=== PATIENT | female | born 1945 | race Hispanic/Latino ===

== ENCOUNTER 2017-11-28 20:54 | Emergency (ER) | payer MEDICARE, OTHER ==
[2017-11-28] MEDS ORDERED: TRIPLE ANTIBIOTIC TP STA (21:35)
[2017-11-28] MEDS ORDERED: TYLENOL PO ONE (21:35)
[2017-11-28] MEDS ORDERED: BOOSTRIX IM ONE (21:35)
--- NOTE | 2017-11-28 21:36 | Emergency Department Report ---
ED Fall HPI - General Chief Complaint: Fall Stated Complaint: KNEE PAIN Time Seen by Provider: 11/28/17 21:19 Source: patient, RN notes reviewed Mode of arrival: Stretcher Limitations: Physical Limitation - History of Present Illness Initial Comments: Primary care Dr.: Josefina andrade Orthopedics: Prince Dawson is a 72-year-old female, unknown to this provider, takes aspirin, presents to the ER after mechanical trip and fall, landing on her left knee, and left side of her face. There were no symptoms prior to the fall, she tripped while walking her dog. Her left knee pain is sharp and achy, increases with palpation , decreases with rest, does not radiate anywhere. She can't recall her last tetanus vaccination, and has left-sided forehead pain , and left cheek pain where she fell. There is no midline neck pain, there is no weakness, numbness, ataxia, chest pain, shortness of breath, abdominal pain, and there is no bladder or bowel retention or incontinence. MD Complaint: fall -: Sudden Fall From: standing When Fall Occurred: 1 hour [employer] PREPAR[employer] Fall Witnessed: no Place Fall Occurred: home Loss of Consciousness: none Prolonged Down Time?: no Symptoms Prior to Fall: none Location: head, other Location - Extremities: Left: Knee, Leg Severity: moderate Quality: other (see history of present illness) Associated Symptoms: denies: neck pain, numbness, weakness, chest paint, shortness of breath, abdominal pain, hematuria, lightheaded, vertigo, confusion - Related Data Home Medications Medication Instructions Recorded Confirmed Last Taken Aspirin [Aspirin BABY CHEW TAB] 81 mg PO QDAY 05/06/13 02/04/14 01/21/14 81 MG Atorvastatin (Nf) [Lipitor (Nf)] 20 mg PO QDAY 05/06/13 02/04/14 02/03/14 22:00 20 MG Celecoxib [celeBREX] 200 mg PO DAILY 05/06/13 02/04/14 02/03/14 22:00 200 MG Insulin Detemir [Levemir Flexpen] 100 unit SQ HS 05/06/13 02/04/14 02/02/14 23: 30 54 UNITS Valsartan [Diovan] 160 mg PO QDAY 05/06/13 02/04/14 02/04/14 06:00 160 MG Allopurinol [Zyloprim] 300 mg PO QDAY 01/13/14 02/04/14 02/03/14 08:30 300 MG Escitalopram [Lexapro] 10 mg PO DAILY 01/13/14 02/04/14 02/03/14 20:00 10 MG Glipizide/Metformin HCl 1 each PO BID 01/13/14 02/04/14 02/03/14 22:00 [glipiZIDE-Metformin 5-500 mg] 1 TAB Sitagliptin Phosphate [Januvia] 100 mg PO DAILY 01/13/14 02/04/14 02/03/14 09:00 100 mg Levalbuterol HCl [Xopenex] 3 ml INHALATION PRN PRN 02/04/14 02/04/14 02/04/14 06 :00 3 ML Previous Rx's Medication Instructions Recorded Last Taken Type HYDROcodone/ACETAMINOPHEN [[place] 1 each PO 6XD PRN #60 tablet 02/11/14 Unknown Rx 5/325 Tablet] Acetaminophen [Tylenol Arthritis] 650 mg PO Q6HR PRN #30 tablet.er 11/28/17 Unknown Rx Bacitracin Zinc Oint [Antibiotic 20 applic TP BID #1 tube 11/28/17 Unknown Rx Oint] Allergies Allergy/AdvReac Type Severity Reaction Status Date / Time Sulfa (Sulfonamide Allergy Swelling Verified 05/22/13 07:56 Antibiotics) corn [[place]] AdvReac Unknown Verified 01/13/14 12:45 strawberry [[place]] AdvReac Unknown Verified 01/13/14 12:45 ED Review of Systems ROS: Stated complaint: KNEE PAIN Other details as noted in HPI Comment: All other systems reviewed and negative ED Past Medical Hx - Past Medical History Hx Hypertension: Yes (2000/PCP-jose WHITTAKER) Hx Heart Attack/AMI: No Hx Diabetes: Yes (1993) Hx Renal Disease: No Hx Headaches / Migraines: No Hx Seizures: No Hx Asthma: Yes Hx Dementia: No - Surgical History Hx Cholecystectomy: Yes (1993) Hx Appendectomy: Yes (1964) Additional Surgical History: R KNEE - Social History Smoking Status: Never Smoker Substance Use Type: None - Medications Home Medications: Home Medications Medication Instructions Recorded Confirmed Last Taken Type Aspirin [Aspirin BABY CHEW TAB] 81 mg PO QDAY 05/06/13 02/04/14 01/21/14 History 81 MG Atorvastatin (Nf) [Lipitor (Nf)] 20 mg PO QDAY 05/06/13 02/04/14 02/03/14 22:00 History 20 MG Celecoxib [celeBREX] 200 mg PO DAILY 05/06/13 02/04/14 02/03/14 22:00 History 200 MG Insulin Detemir [Levemir Flexpen] 100 unit SQ HS 05/06/13 02/04/14 02/02/14 23: 30 History 54 UNITS Valsartan [Diovan] 160 mg PO QDAY 05/06/13 02/04/14 02/04/14 06:00 History 160 MG Allopurinol [Zyloprim] 300 mg PO QDAY 01/13/14 02/04/14 02/03/14 08:30 History 300 MG Escitalopram [Lexapro] 10 mg PO DAILY 01/13/14 02/04/14 02/03/14 20:00 History 10 MG Glipizide/Metformin HCl 1 each PO BID 01/13/14 02/04/14 02/03/14 22:00 History [glipiZIDE-Metformin 5-500 mg] 1 TAB Sitagliptin Phosphate [Januvia] 100 mg PO DAILY 01/13/14 02/04/14 02/03/14 09: 00 History 100 mg Levalbuterol HCl [Xopenex] 3 ml INHALATION PRN PRN 02/04/14 02/04/14 02/04/14 06 :00 History 3 ML HYDROcodone/ACETAMINOPHEN [[place] 1 each PO 6XD PRN #60 tablet 02/11/14 Unknown Rx 5/325 Tablet] Acetaminophen [Tylenol Arthritis] 650 mg PO Q6HR PRN #30 tablet.er 11/28/17 Unknown Rx Bacitracin Zinc Oint [Antibiotic 20 applic TP BID #1 tube 11/28/17 Unknown Rx Oint] ED Physical Exam - General Limitations: Physical Limitation General appearance: alert, in no apparent distress - Head Head exam: Present: normocephalic, other (superficial forehead abrasions noted) - Eye Eye exam: Present: normal appearance, EOMI, other (visual acuity intact to finger counting, color perception, reading at a close distance). Absent: nystagmus - ENT ENT exam: Present: normal exam, normal orophraynx, mucous membranes moist, TM's normal bilaterally (negative nasal septal hematoma. No hemotympanum.), normal external ear exam, other (no dental laxity) - Neck Neck exam: Present: normal inspection, full ROM. Absent: tenderness, meningismus - Respiratory Respiratory exam: Present: normal lung sounds bilaterally. Absent: respiratory distress - Cardiovascular Cardiovascular Exam: Present: regular rate, normal rhythm, normal heart sounds. Absent: bradycardia, tachycardia, irregular rhythm, systolic murmur, diastolic murmur, rubs, gallop - GI/Abdominal GI/Abdominal exam: Present: soft, normal bowel sounds. Absent: distended, tenderness, guarding, rebound, rigid, pulsatile mass - Extremities Exam Extremities exam: Present: full ROM, tenderness, normal capillary refill, other (2+ pulses noted in the bilateral upper, lower extremities. The pelvis is stable. There is no long bony tenderness. Left knee is tender and swollen. There is no laxity. There is full active, passive range of motion of the bilateral upper extremities, right lower extremity. There is no distal lower extremity tenderness on the left, with the exception of the left knee tenderness.). Absent: pedal edema, joint swelling, calf tenderness - Back Exam Back exam: Present: normal inspection, full ROM. Absent: paraspinal tenderness , vertebral tenderness - Neurological Exam Neurological exam: Present: alert, oriented X3, CN II-XII intact, other ( Extraocular movements intact. Tongue midline. No facial droop. Facial sensation intact to light touch in the V1, V2, V3 distribution bilaterally. 5 and 5 strength in 4 extremities.. Sensation is intact to light touch in 4 extremities.). Absent: motor sensory deficit - Psychiatric Psychiatric exam: Present: normal affect, normal mood - Skin Skin exam: Present: warm, abrasion, ecchymosis ED Course Vital Signs 11/28/17 11/28/17 11/28/17 21:12 21:16 21:21 Temperature 98 F Pulse Rate 86 91 H Respiratory 25 H 18 Rate Blood Pressure 142/68 142/68 O2 Sat by Pulse 97 95 97 Oximetry ED Medical Decision Making - Lab Data Vital Signs 11/28/17 11/28/17 11/28/17 21:12 21:16 21:21 Temperature 98 F Pulse Rate 86 91 H Respiratory 25 H 18 Rate Blood Pressure 142/68 142/68 O2 Sat by Pulse 97 95 97 Oximetry 11/28/17 22:50 Temperature Pulse Rate Respiratory 16 Rate Blood Pressure O2 Sat by Pulse Oximetry - Radiology Data Radiology results: report reviewed, image reviewed interpreted by me: X-ray of the pelvis/left knee/left femur is negative for acute disease Soft tissue swelling is noted, no obvious fracture or dislocation Noncontrast CT scan of the brain, facial bones negative for acute disease - Medical Decision Making Differential diagnosis, including but not limited to: Abrasion, fracture, facial injury, soft tissue injury Assessment and plan: 72-year-old female status post mechanical trip and fall. Patient is clinically sober at this time. The cervical spine is cleared through nexus and bulgar[place] c spine rule Noncontrast CT scan of the brain and facial bones were negative. X-ray of the pelvis, left knee, left femur were negative. Her physical exam is otherwise unremarkable. The patient is clinically sober with a GCS of 15, with an NIH score of 0. She is given a tetanus vaccination and pain medication. Expectant management and return precautions were reviewed with the patient and her family. Family feels okay to take the patient home and observe her. The patient also feels okay with this plan. Critical care attestation.: If time is entered above; I have spent that time in minutes in the direct care of this critically ill patient, excluding procedure time. ED Disposition Clinical Impression: Left knee pain, Facial contusion, Fall Disposition: [id number] TO HOME OR SELFCARE Is pt being admited?: No Does the pt Need Aspirin: No Condition: Stable Instructions: Arthralgia (ED) Additional Instructions: Pain typically gets worse before it gets better after a mechanical fall. Rest, and avoid heavy lifting. Avoid strenuous physical activity. X-ray of the pelvis, left femur, left knee was initially interpreted by the ER physician as having no acute disease, a formal radiology interpretation will result in the next 24 hours. Have your primary care doctor or orthopedist contact the medical records department to obtain the final radiology interpretation. Follow -up with the primary care doctor or orthopedist within the next 7-10 days. Return to the ER right away with new pain, worsened pain, migration of pain, projectile vomiting, change in mental status, inability to tolerate liquid feedings. Use the bacitracin ointment as directed, and wash face and abrasions with gentle soap and water every 8-12 hours. Referrals: PRIMARY CARE, [Primary Care Provider] - 3-5 Days MONI SINGLETARY MD [Staff Physician] - 3-5 Days ALLISON JACKSON MD [Staff Physician] - 3-5 Days
--- NOTE | 2017-11-28 22:16 | Cat Scan Report ---
FINAL REPORT PROCEDURE: CT HEAD/BRAIN WO CON TECHNIQUE: Computerized tomography of the head was performed without contrast material. HISTORY: fall facial traum,a COMPARISON: No prior studies are available for comparison. FINDINGS: Skull and scalp: Normal. Paranasal sinuses: Normal. Ventricles and subarachnoid spaces: Are prominent consistent with cerebral atrophy appropriate for patient's age.. 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 An old lacunar infarct is noted involving the anterior limb right internal capsule. An acute extra-axial or intra-axial hemorrhage is not identified. There is no mass effect.. Cerebellum and brainstem: No evidence of hemorrhage, acute infarction or mass. Vasculature: Normal. Comments: None. IMPRESSION: No acute intracranial abnormality.
--- NOTE | 2017-11-28 22:25 | Cat Scan Report ---
FINAL REPORT PROCEDURE: CT FACIAL BONES WO CON TECHNIQUE: Computerized tomography of the facial bones and soft tissues with axial and coronal sections performed from the cranial aspect of the frontal sinuses to the caudal portion of the mandible without contrast material. HISTORY: fall facial traum,a COMPARISON: No prior studies are available for comparison. FINDINGS: Bones: No significant abnormality. Paranasal sinuses: Clear. Soft tissues: No significant abnormality. Other: Atherosclerotic calcification is noted involving bilateral carotid bifurcations.. IMPRESSION: No acute fracture Atherosclerotic calcification of bilateral carotid bifurcations. Doppler evaluation is recommended.
[2017-11-28] MEDS ORDERED: ROXICODONE PO ONE (23:12)
--- NOTE | 2017-11-28 23:59 | XRay Report ---
FINAL REPORT PROCEDURE: XR PELVIS 1-2V TECHNIQUE: Pelvis radiograph, AP view. CPT 13110 HISTORY: fall leg pain COMPARISON: No prior studies are available for comparison. FINDINGS: Fracture(s): None . Joint spaces: Normal . Soft tissues: Normal . Foreign bodies: None . Bone mineralization: Normal . A subcutaneous abdominal port with catheter is identified. IMPRESSION: Unremarkable pelvis.
--- NOTE | 2017-11-29 | XRay Report ---
FINAL REPORT PROCEDURE: XR FEMUR 2+V LT TECHNIQUE: LEFT femur radiographs, AP and lateral views. HISTORY: fall leg pain COMPARISON: No prior studies are available for comparison. FINDINGS: Fracture (s) and/or Dislocation(s): None . Joint space(s): Normal . Soft tissues: Normal . Bone mineralization: Normal . Foreign bodies: None . IMPRESSION: Normal Examination
--- NOTE | 2017-11-29 00:02 | XRay Report ---
FINAL REPORT PROCEDURE: XR KNEE 3V LT TECHNIQUE: LEFT knee radiographs, AP, lateral and sunrise views. CPT 50359 HISTORY: fall leg pain COMPARISON: No prior studies are available for comparison. FINDINGS: Fracture (s) and/or Dislocation(s): None . Alignment: Normal . Joint space(s): Normal . Soft tissues: Normal . Bone mineralization: Normal . Foreign bodies: None . IMPRESSION: Normal Examination.
[2017-11-29 00:24] VITALS: BP 149/66
== END 2017-11-29 00:24 | disposition home or self-care (01) ==
LOC: ED 20:54
DX: S80.02XA Contusion of left knee, initial encounter (principal); J45.909 Unspecified asthma, uncomplicated; I10 Essential (primary) hypertension; E11.9 Type 2 diabetes mellitus without complications; Z90.49 Acquired absence of other specified parts of digestive tract; Z79.82 Long term (current) use of aspirin; Z88.2 Allergy status to sulfonamides; Z91.018 Allergy to other foods; Z79.4 Long term (current) use of insulin; W01.198A Fall on same level from slipping, tripping and stumbling with subsequent striking against other object, initial encounter; Y93.89 Activity, other specified; Y92.89 Other specified places as the place of occurrence of the external cause; Y99.8 Other external cause status
CPT/HCPCS: 70450; 70486; 72170; 90471; 90715; A6250

== ENCOUNTER 2017-12-31 12:46 | Outpatient (CLI) | payer MEDICARE, OTHER ==
[2017-12-31 18:28] LABS: Total Cells Counted 100 /mm3
== END 2017-12-31 12:47 | disposition home or self-care (01) ==
LOC: LAB 12:46
PROVIDERS: ATTEND Orthopaedic Surgery
DX: M70.42 Prepatellar bursitis, left knee (principal); I10 Essential (primary) hypertension; E11.59 Type 2 diabetes mellitus with other circulatory complications; J44.9 Chronic obstructive pulmonary disease, unspecified; E78.00 Pure hypercholesterolemia, unspecified; F32.9 Major depressive disorder, single episode, unspecified; M19.90 Unspecified osteoarthritis, unspecified site; Z88.1 Allergy status to other antibiotic agents; Z91.018 Allergy to other foods
CPT/HCPCS: 87116; 89051

== ENCOUNTER 2018-12-16 08:20 | Outpatient (CLI) | payer MEDICARE, OTHER ==
[2018-12-16 11:17] LABS: Calcium 9.7 mg/dL (8.4-10.2)
[2018-12-16 11:30] LABS: Bacteria,Urine 2+ /HPF (Negative); Bilirubin,Urine NEG (Negative); Blood,Urine NEG (Negative); Color,Urine Yellow (Yellow); Mucus,Urine FEW /HPF; Protein,Urine <15 mg/dL mg/dL (Negative); Urobilinogen,Urine < 2.0 mg/dL (<2.0)
== END 2018-12-16 08:21 | disposition home or self-care (01) ==
LOC: LAB 08:20
PROVIDERS: ATTEND Internal Medicine
DX: E78.5 Hyperlipidemia, unspecified (principal); N39.0 Urinary tract infection, site not specified; J44.9 Chronic obstructive pulmonary disease, unspecified; E78.00 Pure hypercholesterolemia, unspecified; I10 Essential (primary) hypertension; K21.9 Gastro-esophageal reflux disease without esophagitis; Z90.89 Acquired absence of other organs
CPT/HCPCS: 36415; 80048; 81001

== ENCOUNTER 2019-01-20 09:42 | Outpatient (CLI) | payer MEDICARE, OTHER ==
--- NOTE | 2019-01-20 12:39 | Vascular Lab Report ---
DUPLEX DOPPLER LOWER EXTREMITY ARTERIAL, BILATERAL INDICATION: I73.9(PERIPHERAL VASCULAR DISEASE UNSPECIFIED). TECHNIQUE: Arterial duplex examination of both lower extremities performed using B-mode, color flow and spectral Doppler assessment. FINDINGS: RIGHT: Common Femoral Artery: PSV 106 cm/sec. Triphasic waveform. Proximal SFA: PSV 103 cm/sec. Triphasic waveform. Mid SFA: PSV 110 cm/sec. Triphasic waveform. Distal SFA: PSV 82 cm/sec. Triphasic waveform. Popliteal artery: PSV 88 cm/sec. Triphasic waveform. Posterior tibial artery: PSV 85 cm/sec. Triphasic waveform. Anterior tibial artery: PSV 84 cm/sec. Triphasic waveform. Dorsalis pedis artery: 24 cm/s. Biphasic waveform. LEFT: Common Femoral Artery: PSV 104 cm/sec. Triphasic waveform. Proximal SFA: PSV 124 cm/sec. Triphasic waveform. Mid SFA: PSV 110 cm/sec. Triphasic waveform. Distal SFA: PSV 80 cm/sec. Triphasic waveform. Popliteal artery: PSV 88 cm/sec. Triphasic waveform. Posterior tibial artery: PSV 90 cm/sec. Triphasic waveform. Anterior tibial artery: 100 cm/s. Triphasic waveform. Dorsalis Pedis Artery: PSV 48 cm/sec. Biphasic waveform. IMPRESSION: No significant lower extremity peripheral artery disease. Doppler Waveform: * Triphasic is normal. * Biphasic is abnormal if clear transition from triphasic signal along vascular tree. * Monophasic is abnormal. Signer Name: Jason Liu Jr, MD Signed: 01/20/2019 12:34 PM Workstation Name: [id number]
== END 2019-01-20 09:43 | disposition home or self-care (01) ==
LOC: VAS 09:42
PROVIDERS: ATTEND Internal Medicine
DX: I73.9 Peripheral vascular disease, unspecified (principal); I10 Essential (primary) hypertension; J44.9 Chronic obstructive pulmonary disease, unspecified; E78.00 Pure hypercholesterolemia, unspecified; K21.9 Gastro-esophageal reflux disease without esophagitis; E11.9 Type 2 diabetes mellitus without complications
CPT/HCPCS: 93925

== ENCOUNTER 2019-04-02 08:21 | Outpatient (CLI) | payer MEDICARE, OTHER ==
[2019-04-02 10:07] LABS: Calcium 9.3 mg/dL (8.4-10.2)
[2019-04-02 10:08] LABS: Chol/HDL Ratio 4.21 %
== END 2019-04-02 08:22 | disposition home or self-care (01) ==
LOC: LAB 08:21
PROVIDERS: ATTEND Internal Medicine
DX: E11.9 Type 2 diabetes mellitus without complications (principal); E78.5 Hyperlipidemia, unspecified; E87.5 Hyperkalemia; I10 Essential (primary) hypertension; J44.9 Chronic obstructive pulmonary disease, unspecified; E78.00 Pure hypercholesterolemia, unspecified; Z72.89 Other problems related to lifestyle; Z90.49 Acquired absence of other specified parts of digestive tract
CPT/HCPCS: 36415; 80048; 80061; 83036

== ENCOUNTER 2020-06-28 21:34 | Emergency (ER) | payer MEDICARE, OTHER ==
--- NOTE | 2020-06-28 22:27 | Emergency Department Report ---
Blank Doc - Documentation Documentation: 74-year-old female that presents with abdominal pain with nausea. Stated cameron meyers is constipated. 1- This initial assessment/diagnostic orders/clinical plan/ treatment(s) is/are subject to change based on pt's health status, clinical progression and re- assessment by fellow clinical providers in the ED. Further treatment and workup at subsequent clinical provers discretion. Patient/guardians urged not to elope from ED as their condition may be serious if not clinically assessed and managed. 2-labs 3-UA
[2020-06-28 23:06] LABS: Basophils % (Auto) 0.4 % (0.0-1.8); Eosinophils # (Auto) 0.1 K/mm3 (0.0-0.4); Eosinophils % (Auto) 0.5 % (0.0-4.3); Hematocrit 41.4 % (30.3-42.9); Hemoglobin 13.4 gm/dl (10.1-14.3); Lymphocytes # (Auto) 1.1 K/mm3 (1.2-5.4); Lymphocytes % (Auto) 9.9 % (13.4-35.0); Mean Corpuscular HGB Conc 33 % (30-34); Mean Corpuscular Volume 83 fl (79-97); Monocytes # (Auto) 0.4 K/mm3 (0.0-0.8); Monocytes % (Auto) 3.5 % (0.0-7.3); Platelet Count 282 K/mm3 (140-440); Red Blood Count 4.96 M/mm3 (3.65-5.03); Red Cell Distribution Width 15.5 % (13.2-15.2)
[2020-06-28 23:16] LABS: Albumin 4.4 g/dL (3.9-5); Calcium 9.3 mg/dL (8.4-10.2)
[2020-06-29] MEDS ORDERED: ONDANSETRON 4 MG ODT TAB PO ONE (00:04)
--- NOTE | 2020-06-29 00:07 | Emergency Department Report ---
ED Abdominal Pain HPI - General Chief Complaint: Abdominal Pain Stated Complaint: CONSTIPATION/ABD PAIN Time Seen by Provider: 06/28/20 22:26 Source: patient Mode of arrival: Ambulatory Limitations: No Limitations - History of Present Illness Initial Comments: Patient is 74 years old female with history of hypertension, diabetes and asthma. Patient presented to the ER complaining of 2-day history of diffuse abdominal pain, crampy in nature with no radiation. Patient stated that she has been dry heaving but no vomiting. Patient stated that she did not have a bowel movement for the last 2 days and she feels like she is very constipated. Patient denied any fever or chills. No chest pain or shortness of breath. MD Complaint: abdominal pain -: Last night Location: diffuse Radiation: none Severity scale (0 -10): 4 Quality: cramping - Related Data Home Medications Medication Instructions Recorded Confirmed Last Taken Aspirin [Aspirin BABY CHEW TAB] 81 mg PO QDAY 05/06/13 02/04/14 01/21/14 81 MG Atorvastatin (Nf) [Lipitor (Nf)] 20 mg PO QDAY 05/06/13 02/04/14 02/03/14 22:00 20 MG Celecoxib [celeBREX] 200 mg PO DAILY 05/06/13 02/04/14 02/03/14 22:00 200 MG Insulin Detemir [Levemir Flexpen] 100 unit SQ HS 05/06/13 02/04/14 02/02/14 23:30 54 UNITS Valsartan [Diovan] 160 mg PO QDAY 05/06/13 02/04/14 02/04/14 06:00 160 MG Escitalopram [Lexapro] 10 mg PO DAILY 01/13/14 02/04/14 02/03/14 20:00 10 MG Glipizide/Metformin HCl 1 each PO BID 01/13/14 02/04/14 02/03/14 22:00 [glipiZIDE-Metformin 5-500 mg] 1 TAB Sitagliptin Phosphate [Januvia] 100 mg PO DAILY 01/13/14 02/04/14 02/03/14 09:00 100 mg allopurinoL [Zyloprim] 300 mg PO QDAY 01/13/14 02/04/14 02/03/14 08:30 300 MG Levalbuterol HCl [Xopenex] 3 ml INHALATION PRN PRN 02/04/14 02/04/14 02/04/14 06:00 3 ML Previous Rx's Medication Instructions Recorded Last Taken Type HYDROcodone/ACETAMINOPHEN [[place] 1 each PO 6XD PRN #60 tablet 02/11/14 Unknown Rx 5/325 Tablet] Acetaminophen [Tylenol Arthritis] 650 mg PO Q6HR PRN #30 tablet.er 11/28/17 Unknown Rx Bacitracin Zinc Oint [Antibiotic 20 applic TP BID #1 tube 11/28/17 Unknown Rx Oint] Docusate Sodium [Colace] 100 mg PO BID PRN #60 capsule 06/29/20 Unknown Rx Lactulose 10 gm PO DAILY PRN #150 ml 06/29/20 Unknown Rx Allergies Allergy/AdvReac Type Severity Reaction Status Date / Time Sulfa (Sulfonamide Allergy Swelling Verified 05/22/13 07:56 Antibiotics) corn [[place]] AdvReac Unknown Verified 01/13/14 12:45 strawberry [[place]] AdvReac Unknown Verified 01/13/14 12:45 ED Review of Systems ROS: Stated complaint: CONSTIPATION/ABD PAIN Other details as noted in HPI Comment: All other systems reviewed and negative Constitutional: denies: chills, fever Respiratory: denies: cough, orthopnea, shortness of breath, SOB with exertion Cardiovascular: denies: chest pain, palpitations Gastrointestinal: abdominal pain, nausea, constipation. denies: vomiting, diarrhea, hematemesis, melena, hematochezia Musculoskeletal: denies: back pain ED Past Medical Hx - Past Medical History Previous Medical History?: Yes Hx Hypertension: Yes (2000/PCP-jose WHITTAKER) Hx Heart Attack/AMI: No Hx Diabetes: Yes (1993) Hx Renal Disease: No Hx Headaches / Migraines: No Hx Seizures: No Hx Asthma: Yes Hx Dementia: No Additional medical history: lawson's palsey - Surgical History Past Surgical History?: Yes Hx Cholecystectomy: Yes (1993) Hx Appendectomy: Yes (1964) Additional Surgical History: R KNEE - Social History Smoking Status: Never Smoker Substance Use Type: None - Medications Home Medications: Home Medications Medication Instructions Recorded Confirmed Last Taken Type Aspirin [Aspirin BABY CHEW TAB] 81 mg PO QDAY 05/06/13 02/04/14 01/21/14 History 81 MG Atorvastatin (Nf) [Lipitor (Nf)] 20 mg PO QDAY 05/06/13 02/04/14 02/03/14 22:00 History 20 MG Celecoxib [celeBREX] 200 mg PO DAILY 05/06/13 02/04/14 02/03/14 22:00 History 200 MG Insulin Detemir [Levemir Flexpen] 100 unit SQ HS 05/06/13 02/04/14 02/02/14 23:30 History 54 UNITS Valsartan [Diovan] 160 mg PO QDAY 05/06/13 02/04/14 02/04/14 06:00 History 160 MG Escitalopram [Lexapro] 10 mg PO DAILY 01/13/14 02/04/14 02/03/14 20:00 History 10 MG Glipizide/Metformin HCl 1 each PO BID 01/13/14 02/04/14 02/03/14 22:00 History [glipiZIDE-Metformin 5-500 mg] 1 TAB Sitagliptin Phosphate [Januvia] 100 mg PO DAILY 01/13/14 02/04/14 02/03/14 09:00 History 100 mg allopurinoL [Zyloprim] 300 mg PO QDAY 01/13/14 02/04/14 02/03/14 08:30 History 300 MG Levalbuterol HCl [Xopenex] 3 ml INHALATION PRN PRN 02/04/14 02/04/14 02/04/14 06:00 History 3 ML HYDROcodone/ACETAMINOPHEN [[place] 1 each PO 6XD PRN #60 tablet 02/11/14 Unknown Rx 5/325 Tablet] Acetaminophen [Tylenol Arthritis] 650 mg PO Q6HR PRN #30 tablet.er 11/28/17 Unknown Rx Bacitracin Zinc Oint [Antibiotic 20 applic TP BID #1 tube 11/28/17 Unknown Rx Oint] Docusate Sodium [Colace] 100 mg PO BID PRN #60 capsule 06/29/20 Unknown Rx Lactulose 10 gm PO DAILY PRN #150 ml 06/29/20 Unknown Rx ED Physical Exam - General Limitations: No Limitations General appearance: alert, in no apparent distress - Head Head exam: Present: atraumatic, normocephalic, normal inspection - Eye Eye exam: Present: normal appearance, PERRL - ENT ENT exam: Present: normal exam, normal orophraynx, mucous membranes moist - Neck Neck exam: Present: normal inspection, full ROM. Absent: tenderness, meningismus - Respiratory Respiratory exam: Present: normal lung sounds bilaterally - Cardiovascular Cardiovascular Exam: Present: regular rate, normal rhythm, normal heart sounds - GI/Abdominal GI/Abdominal exam: Present: soft, normal bowel sounds. Absent: distended, tenderness, guarding, rebound, rigid, organomegaly, mass, bruit, pulsatile mass, hernia - Extremities Exam Extremities exam: Present: normal inspection, full ROM, normal capillary refill. Absent: tenderness, pedal edema, calf tenderness - Back Exam Back exam: Present: normal inspection, full ROM. Absent: CVA tenderness (R), CVA tenderness (L) - Neurological Exam Neurological exam: Present: alert, oriented X3, CN II-XII intact - Psychiatric Psychiatric exam: Present: normal mood - Skin Skin exam: Present: warm, intact, normal color ED Course Vital Signs 06/28/20 06/29/20 22:31 02:27 Temperature 97.9 F Pulse Rate 101 H Respiratory 16 18 Rate Blood Pressure 175/82 O2 Sat by Pulse 94 Oximetry ED Medical Decision Making - Lab Data Result diagrams: 06/28/20 22:32 06/28/20 22:32 - Radiology Data Radiology results: report reviewed - Medical Decision Making Patient is 74 years old female with history of hypertension, diabetes and asthma. Patient presented to the ER complaining of 2-day history of diffuse abdominal pain, crampy in nature with no radiation. Patient stated that she has been dry heaving but no vomiting. Patient stated that she did not have a bowel movement for the last 2 days and she feels like she is very constipated. Patient denied any fever or chills. No chest pain or shortness of breath. Labs reviewed and is unremarkable. Patient received Zofran and stated that nausea is completely resolved. CT abdomen and pelvis showed no evidence of obstruction however she has a impacted stool in the rectum area indicating constipation. CT also not ruling and neoplastic changes in the rectal area. P atient informed about her CT finding and advised to strongly follow-up with her primary doctor for further management and referral to colorectal surgeon. Patient given prescription for [place] enema and lactulose. Critical care attestation.: If time is entered above; I have spent that time in minutes in the direct care of this critically ill patient, excluding procedure time. ED Disposition Clinical Impression: Abdominal pain, Constipation, UTI (urinary tract infection) Disposition: TO HOME OR SELFCARE Is pt being admited?: No Condition: Stable Instructions: Abdominal Pain, Adult, Constipation, Adult, Abdominal Pain (ED), Urinary Tract Infection, Adult, [id number] Prescriptions: Docusate Sodium [Colace] 100 mg PO BID PRN #60 capsule PRN Reason: Constipation Lactulose 10 gm PO DAILY PRN #150 ml PRN Reason: Constipation Referrals: DANIELLA FOSTER MD [Primary Care Provider] - 3-5 Days
--- NOTE | 2020-06-29 00:30 | XRay Report ---
ACUTE ABDOMEN SERIES 3 VIEWS 8010 INDICATION: Decreased bowel movements, abdominal pain, abdominal distention, nausea, vomiting COMPARISON: Pelvic radiograph 11/28/2017, chest x-ray 07/31/2008 FINDINGS: Lung delaney appear clear. No pneumoperitoneum is noted. LAP-BAND is seen which appears to b e in satisfactory position. Cholecystectomy changes are noted. No obvious urinary tract calculi are n oted. The extreme lower pelvis is not fully included. Bowel gas pattern is unremarkable without evide nce of obstruction. Signer Name: Noah Lee MD Signed: 06/29/2020 12:26 AM Workstation Name: [id number]
--- NOTE | 2020-06-29 01:27 | Cat Scan Report ---
CT ABDOMEN AND PELVIS WITHOUT CONTRAST INDICATION: Patient complains of abdominal pain with nausea and constipation. CONTRAST: Without IV COMPARISON: None available. All CT scans at this location are performed using CT dose reduction for ALARA by means of automated e xposure control. NOTE: Resolution is decreased and artifact is introduced by the patient's size. FINDINGS: LAP-BAND is noted which appears to be in satisfactory position. Lung bases show mild probab le chronic changes. No pneumoperitoneum is seen. No free fluid is noted. No significant abdominal wal l herniation is seen. Gallbladder has been removed. No biliary dilatation is noted. Small right renal cyst is seen. Mild left renal atrophic changes are noted. No urinary tract calculi or evidence of ob struction are seen. No other masses are noted. No evidence of bowel obstruction is seen. Appendix is not visualized. Mild colonic diverticulosis is seen without evidence of diverticulitis. Moderate amou nt of stool is seen in the rectosigmoid colon which may include mild rectal impaction. The lower rect al wall appears concentrically thickened. No abnormal fluid collections are seen. No lymphadenopathy is noted. No focal inflammatory changes are seen. IMPRESSION: Evidence of distal constipation/rectal impaction. The lower rectal wall appears thickened concentrically. A neoplastic process is not excluded. Possibly this is edema related to proctitis th ough I do not see significant surrounding inflammation. Clinical assessment is needed. Signer Name: Noah Lee MD Signed: 06/29/2020 1:22 AM Workstation Name: [id number]
[2020-06-29] MEDS ORDERED: MINERAL OIL ENEMA 133 ML PR ONE (01:49)
[2020-06-29] MEDS ORDERED: MORPHINE 4 MG/1 ML INJ IM ONE (02:01)
[2020-06-29 02:06] LABS: Bacteria,Urine 2+ /HPF (Negative); Bilirubin,Urine NEG (Negative); Blood,Urine NEG (Negative); Color,Urine Yellow (Yellow); Hyaline Casts,Urine 6 /LPF; Mucus,Urine 1+ /HPF; Urobilinogen,Urine < 2.0 mg/dL (<2.0)
[2020-06-29 03:42] VITALS: BP 145/64
== END 2020-06-29 03:35 | disposition home or self-care (01) ==
LOC: ED 21:34
DX: N39.0 Urinary tract infection, site not specified (principal); K59.00 Constipation, unspecified; R10.84 Generalized abdominal pain; I10 Essential (primary) hypertension; Z90.49 Acquired absence of other specified parts of digestive tract; Z98.890 Other specified postprocedural states; Z79.899 Other long term (current) drug therapy; Z88.2 Allergy status to sulfonamides; Z91.018 Allergy to other foods
CPT/HCPCS: 36415; 74022; 74176; 80053; 81001; 83690; 85025; 87086; 96372; 99284; J2270; Q0162

== ENCOUNTER 2020-11-17 11:12 | Outpatient (CLI) | payer MEDICARE, OTHER ==
[2020-11-17 12:10] LABS: Albumin 4.2 g/dL (3.9-5); Calcium 9.4 mg/dL (8.4-10.2); Chol/HDL Ratio 3.43 %
[2020-11-17 12:12] LABS: Bacteria,Urine 1+ /HPF (Negative); Bilirubin,Urine NEG (Negative); Blood,Urine SM (Negative); Color,Urine Yellow (Yellow); Mucus,Urine FEW /HPF; Protein,Urine <15 mg/dL mg/dL (Negative); Urobilinogen,Urine < 2.0 mg/dL (<2.0)
[2020-11-17 12:14] LABS: Basophils # (Auto) 0.1 K/mm3 (0.0-0.1); Basophils % (Auto) 0.8 % (0.0-1.8); Eosinophils # (Auto) 0.2 K/mm3 (0.0-0.4); Eosinophils % (Auto) 3.3 % (0.0-4.3); Hematocrit 40.3 % (30.3-42.9); Hemoglobin 12.9 gm/dl (10.1-14.3); Lymphocytes # (Auto) 2.2 K/mm3 (1.2-5.4); Lymphocytes % (Auto) 34.7 % (13.4-35.0); Mean Corpuscular HGB Conc 32 % (30-34); Mean Corpuscular Volume 85 fl (79-97); Monocytes # (Auto) 0.5 K/mm3 (0.0-0.8); Monocytes % (Auto) 7.5 % (0.0-7.3); Platelet Count 297 K/mm3 (140-440); Red Blood Count 4.74 M/mm3 (3.65-5.03); Red Cell Distribution Width 16.5 % (13.2-15.2)
[2020-11-20 16:15] LABS: Vitamin D, 25-OH, D2 <4 ng/mL
== END 2020-11-17 11:13 | disposition home or self-care (01) ==
LOC: LAB 11:12
PROVIDERS: ATTEND Internal Medicine
DX: Z13.29 Encounter for screening for other suspected endocrine disorder (principal); E11.22 Type 2 diabetes mellitus with diabetic chronic kidney disease; N18.9 Chronic kidney disease, unspecified; E78.5 Hyperlipidemia, unspecified; E55.9 Vitamin D deficiency, unspecified; N39.0 Urinary tract infection, site not specified; D51.9 Vitamin B12 deficiency anemia, unspecified
CPT/HCPCS: 36415; 80053; 80061; 81001; 82306; 82607; 83036; 84443; 85025; 87076; 87086; 87186

== ENCOUNTER 2021-03-31 08:39 | Outpatient (CLI) | payer MEDICARE, OTHER ==
--- NOTE | 2021-03-31 09:39 | XRay Report ---
CHEST 2 VIEWS INDICATION / CLINICAL INFORMATION: SHORTNESS OF BREATH. COMPARISON: 06/28/2020 FINDINGS: SUPPORT DEVICES: None. HEART / MEDIASTINUM: No significant abnormality. LUNGS / PLEURA: No significant pulmonary or pleural abnormality. No pneumothorax. ADDITIONAL FINDINGS: No significant additional findings. IMPRESSION: 1. No acute findings. Signer Name: Gelacio Art MD Signed: 03/31/2021 9:34 AM Workstation Name: [email or web address]
[2021-03-31 10:21] LABS: Calcium 9.3 mg/dL (8.4-10.2)
[2021-03-31 14:59] LABS: Creatinine,Urine 142.9 mg/dL (0.1-20.0); Microalbumin/Creatinine Ratio 42.6 ug/mg
[2021-03-31 19:01] LABS: Chol/HDL Ratio 3.67 %
== END 2021-03-31 08:40 | disposition home or self-care (01) ==
LOC: LAB 08:39
PROVIDERS: ATTEND Internal Medicine
DX: E11.9 Type 2 diabetes mellitus without complications (principal); N18.9 Chronic kidney disease, unspecified; E78.5 Hyperlipidemia, unspecified; R06.02 Shortness of breath
CPT/HCPCS: 36415; 71046; 80048; 80061; 82043; 83036

== ENCOUNTER 2021-08-25 08:07 | Outpatient (CLI) | payer MEDICARE, OTHER ==
--- NOTE | 2021-08-25 09:35 | XRay Report ---
LUMBAR SPINE 3 VIEWS INDICATION: M54.50 LOW BACK PAIN,UNSPECIFIED COMPARISON: None FINDINGS: There is no fracture, subluxation, or other acute radiographic abnormality of the lumbar spine. There is moderate to severe disc space narrowing at L5-3-4 with a grade 1 spondylolisthesis at L3-4. There is anterior osteophyte formation at L5 3 and L4 and to a lesser extent at L5-S1 and L4-5. There is m ild spondylitic change throughout the lumbar spine as well. There is spondylitic change in the lower thoracic spine with disc space narrowing and prominent anter ior osteophyte formation at T9-10 and T10-11 and to lesser extent at T11-12. Atherosclerotic calcifications are noted in the aorta and common iliac arteries. Incidental note is made of a lap band device Signer Name: Samuel Mauricio MD Signed: 08/25/2021 9:31 AM Workstation Name: [id number]
== END 2021-08-25 08:08 | disposition home or self-care (01) ==
LOC: XRAY 08:07
PROVIDERS: ATTEND Internal Medicine
DX: M43.16 Spondylolisthesis, lumbar region (principal); M48.061 Spinal stenosis, lumbar region without neurogenic claudication; M25.78 Osteophyte, vertebrae; I70.0 Atherosclerosis of aorta
CPT/HCPCS: 72100